=== PATIENT | female | born 1995 | race Caucasian/White ===

== ENCOUNTER 2020-06-23 10:47 | Emergency (ER) | payer OTHER, SELFPAY ==
[2020-06-23 11:01] VITALS: BP 149/115; PULSE 104; RESP 14; TEMP 36.8; O2SAT 96; BMI 37.4
--- NOTE | 2020-06-23 11:36 | W.ED.FEMALGU ---
HPI - Female Genitourinary General: Chief complaint: Vaginal Bleeding Stated complaint: VAGINAL BLEEDING Time Seen by Provider: 06/23/20 10:55 Source: patient Mode of arrival: ambulatory Limitations: no limitations History of Present Illness: HPI Narrative: 25-year-old female who states she has had vaginal bleeding over the last 2 weeks. She states she has had very heavy bleeding going through multiple pads. She does not believe she is has never had a history of heavy bleeding like this in the past. She denies any abdominal pain. She has had no lightheadedness. Denies any vaginal discharge. Patient also states she is concerned she may have Covid as she has lost her sense of smell and taste has had some body aches but her main concern today is her vaginal bleeding. Associated symptoms: Deny abdominal pain, headache(s) or nausea Review of Systems Const: Reports: chills and body aches Eyes: Denies: blurry vision or eye discomfort ENMT: Denies: throat pain or dental pain Card: Denies: chest pain Resp: Denies: dyspnea GI: Denies: abdominal pain, nausea, vomiting or diarrhea : Reports: vaginal bleeding Musc: Denies: neck pain or back pain Skin/Breast: Denies: rash Neuro: Denies: headache(s) Psych: Denies: depression Leroy/Lymph: Denies: easy bruising All/Imm: Denies: urticaria Physical Exam Const: COMMON NORMALS: no acute distress, patient oriented x3 and healthy appearing HENMT: COMMON NORMALS: normocephalic and atraumatic HEAD & SCALP: normocephalic and atraumatic Eye: COMMON NORMALS: Equal, round and reactive pupils present and EOMs intact bilaterally PUPIL: Yes Equal, round and reactive pupils present Neck/C-Spine: COMMON NORMALS: full ROM and supple Chest: COMMONS NORMALS: normal inspection of the chest and normal palpation of entire chest wall Resp: COMMON NORMALS: normal respiratory effort, No retractions, No use of accessory muscles and clear to auscultation bilaterally AUSCULTATION: clear to auscultation bilaterally Cardio: COMMON NORMALS: regular rate, regular rhythm and No murmurs present (Cardio) RATE: regular rate RHYTHM: regular rhythm GI: COMMON NORMALS: Normal to inspection, nondistended, normoactive bowel sounds present, Soft to palpation, non-tender and no masses PALPATION: Yes Soft to palpation Extremity: COMMON NORMALS: normal to inspection and full ROM Neuro: COMMON NORMALS: patient oriented x3, moves all extremities and no focal motor deficits Psych: COMMON NORMALS: mental status grossly normal, Normal thought process present and cooperative THOUGHT PROCESS: Normal thought process present Skin: COMMON NORMALS: no rashes or lesions noted and no wounds GENERAL SKIN EXAM: no rashes or lesions noted Course Vital Signs: Vital signs: Vital Signs Temperature 98.3 F 06/23/20 11:01 Pulse Rate 104 H 06/23/20 11:01 Respiratory Rate 14 06/23/20 11:01 Blood Pressure 149/115 06/23/20 11:01 Pulse Oximetry 96 06/23/20 11:01 MDM - Female MDM Narrative: Medical decision making narrative: Patient presents here with vaginal bleeding. Her hemoglobin here is normal and ultrasound is normal as well. She has no pain or is negative. She is to follow-up with her PCP in 2 to 4 days and return if worsening. She understands and agrees to plan. Lab Data: Labs: Lab Results 06/23/20 06/23/20 Range/Units 12:56 13:10 WBC 5.3 (4.0-10.0) 10^3/ uL RBC 4.51 (4.1-5.3) 10^6/u L Hgb 13.1 (11.5-15.3) g/dL Hct 41.1 (37.0-47.0) % MCV 91.1 (81-99) fL MCH 29.0 (28.0-34.0) pg MCHC 31.9 (30.0-36.0) g/dL RDW 11.9 L (12.1-15.1) % Plt Count 297 (130-400) 10^3/c mm MPV 10.8 H (7.4-10.4) fL Neut % (Auto) 67.9 % Lymph % (Auto) 26.5 % Billings % (Auto) 4.4 % Eos % (Auto) 0.6 % Baso % (Auto) 0.4 % Neut # (Auto) 3.59 (1.8-7.7) 10^3/u L Lymph # (Auto) 1.4 (0.8-4.8) 10^3/u L Billings # (Auto) 0.2 (0.2-0.9) 10^3/u L Eos # (Auto) 0.0 (0.0-0.8) 10^3/u L Baso # (Auto) 0.0 (0.0-0.1) 10^3/u L Nucleated RBC % (a uto) 0 % Nucleated RBCs # 0.0 /100WBC HCG, Qual Negative (Negative) Imaging Data: US OB: Radiologist's impression: [address] [address] Ultrasound Report Signed Patient: Morgan Johnson Unit #: [id number] : 1995 Age/Sex: 25 / F ADM Date: 06/23/20 Loc: ER Room/Bed: Attending Dr: Ordering Provider/Ordering MD: Shelley Martinez MD Date of Service: 06/23/20 Procedure(s): US pelvic with transvaginal Accession Number(s): [id number] Report Number: [id number] WS: [id number] TRANSABDOMINAL PELVIC AND TRANSVAGINAL PELVIC ULTRASOUND HISTORY: vaginal bleeding COMPARISON: None available. Uterus: 8.8 cm x 6.2 cm x 4.6 cm. Anteverted uterus is normal size. No fibroid or mass. Endometrium: 1.2 cm. Normal homogeneity. Right ovary: 1.8 cm x 1.8 cm x 2.5 cm. Normal size ovary with small follicles and normal vascularity. Left ovary: 5.0 cm x 3.4 cm x 3.3 cm. Ovaries slightly enlarged secondary to an associated cyst. Cyst measures 4.0 x 3.3 x 3.6 cm. No increased vascularity. Additional small follicle. No free fluid. US/US pelvic with transvaginal IMPRESSION: 1. Normal endometrium. 2. Moderate-sized simple LEFT ovarian cyst with a maximum diameter of 3.0 cm. Discharge Plan Discharge Patient Disposition: Home Clinical Impression: Vaginal bleeding Condition: Stable Prescriptions: No Action 1 tab PO DAILY RF: 0 Discharge Orders: Discharge Order (Routine); Ordered 06/23/20 Ordered By: Shelley Martinez Referrals: Ashtyn Junior FNP [Primary Care Provider] - Discharge Diet: Advance as tolerated Discharge Activity: Resume usual activity Patient Instructions: Dysfunctional Uterine Bleeding (ED) Coding Level of Care Code ED Interlibrary Loan Specialist for Chg Fwd Exam Comprehensive
[2020-06-23 13:18] LABS: Basophils % 0.4 %; Eosinophils % 0.6 %; Hematocrit 41.1 % (37.0-47.0); Hemoglobin 13.1 g/dL (11.5-15.3); Lymphocytes # 1.4 10^3/uL (0.8-4.8); Lymphocytes % 26.5 %; Mean Corpuscular HGB Conc 31.9 g/dL (30.0-36.0); Mean Corpuscular Volume 91.1 fL (81-99); Mean Platelet Volume 10.8 fL (7.4-10.4); Monocytes # 0.2 10^3/uL (0.2-0.9); Monocytes % 4.4 %; Neutrophils # 3.59 10^3/uL (1.8-7.7); Neutrophils % 67.9 %; Nucleated Red Blood Cells % 0 %; Platelet Count 297 10^3/cmm (130-400); Red Blood Count 4.51 10^6/uL (4.1-5.3); Red Cell Distribution Width 11.9 % (12.1-15.1); White Blood Count 5.3 10^3/uL (4.0-10.0)
[2020-06-23 13:24] LABS: HCG Qualitative Urine. Negative (Negative)
[2020-06-25 07:45] LABS: Coronavirus Lab Test PTC Positive
== END 2020-06-23 14:15 | disposition home or self-care (01) ==
PROVIDERS: Emergency Provider Emergency Medicine; PCP Nurse Practitioner Family
DX: N93.9 Abnormal uterine and vaginal bleeding, unspecified (principal); U07.1 COVID-19
CPT/HCPCS: 12345; 76830; 76856; 81025; 85025; 87635; 99282; 99283

== ENCOUNTER → 2022-09-07 09:34 | Outpatient (BNVA) | payer OTHER, SELFPAY | PROVIDERS: PCP Nurse Practitioner; Visit Provider Nurse Practitioner | DX: R52 Pain, unspecified (principal); B34.9 Viral infection, unspecified | CPT/HCPCS: 87400; 87426 ==

== ENCOUNTER 2023-04-06 06:03 | Outpatient (CLI) | payer OTHER, SELFPAY ==
--- NOTE | 2023-04-06 | USCV_ITS ---
Morgan Johnson Age: 28 Gender: F : 1995 Exam Date: 04/06/2023 06:39 Ordering Phys: Giovana Tucker CASING COOKER Technologist: CHOCO Exam Location: [facility] [place] Indication: HEART PALP BP: 117 / 79 HR: 60 Rhythm: Sinus Technical Quality: Adequate MEASUREMENTS (Male / Female) Normal Values 2D ECHO LVOT Diameter 2.0 cm LV Ejection Fraction MOD 2C 62.4 % LV Ejection Fraction 2C AL 61.7 % LA Diameter 3.4 cm LA Width 3.6 cm LA Height 4.6 cm RA Width 2.6 cm RA Height 4.4 cm Aorta at Sinotubular Diameter 2.4 cm IVC Diameter 1.3 cm M-MODE Aortic Annulus Diameter 2.6 cm LA Ao Ratio MM 1.3 MV E Point Septal Separation 0.4 cm DOPPLER AV Peak Velocity 146.0 cm/s LVOT Peak Velocity 126.0 cm/s AV Area Cont Eq vti 2.9 cm squared AV Area Cont Eq pk 2.7 cm squared MV Peak Velocity 157.0 cm/s MV Area PHT 5.0 cm squared Mitral E to A Ratio 1.6 MV E' Velocity 75.5 cm/s Mitral E to MV E' Ratio 8.5 Mitral E to LV E' Lateral Ratio 7.5 Mitral E to LV E' Septal Ratio 9.9 TR Peak Velocity 257.1 cm/s TR Peak Gradient 26.4 mmHg TR Mean Velocity 241.5 cm/s TR Mean Gradient 23.2 mmHg TR Velocity Time Integral 97.6 cm TV Peak E Velocity 78.0 cm/s Right Atrial Pressure 3.0 mmHg Pulmonary Artery Systolic Pressu 29.4 mmHg PV Peak Velocity 108.0 cm/s RV Acceleration Time 0.2 s RV Ejection Time 0.4 s RV AcT/ET 0.5 FINDINGS Left Ventricle Left ventricle is normal size. LV systolic function is normal with EF of 55 to 60%. No regional wall motion abnormalities are seen. Right Ventricle Normal in size and function Right Atrium Normal in size Left Atrium Normal in size Mitral Valve Structurally normal mitral valve. Mild mitral regurgitation. Aortic Valve Structurally normal aortic valve. No significant stenosis or regurgitation. Tricuspid Valve Trace tricuspid regurgitation. Pulmonary artery systolic pressure is normal. Pulmonic Valve Not well visualized Pericardium Normal Aorta Normal in size IVC Appears to be normal CONCLUSIONS LV systolic function is normal with EF 55 to 60%. Mild mitral regurgitation. Trace tricuspid regurgitation. No comparison studies are available Fady Sesay MD (Electronically Signed) Final Date: 22 April 2023 14:49 S
== END 2023-04-06 06:04 | disposition home or self-care (01) ==
PROVIDERS: PCP Nurse Practitioner Family; Visit Provider Nurse Practitioner Family
DX: R00.2 Palpitations (principal); I34.0 Nonrheumatic mitral (valve) insufficiency
CPT/HCPCS: 93306